=== PATIENT | female | born 1965 | race Caucasian/White ===

== ENCOUNTER 2019-09-14 06:01 | Outpatient (CLI) | payer OTHER, SELFPAY ==
[2019-09-14 18:35] LABS: SARS-CoV-2 RNA PCR Negative
== END 2019-09-14 06:02 | disposition home or self-care (01) ==
LOC: ANHCOVIDDT 06:02
PROVIDERS: PCP Internal Medicine; Visit Provider Internal Medicine Gastroenterology
DX: Z01.818 Encounter for other preprocedural examination (principal); Z11.59 Encounter for screening for other viral diseases
CPT/HCPCS: 87635; C9803; U0003

== ENCOUNTER 2019-09-16 01:56 | Day surgery (SDC) | payer OTHER, SELFPAY ==
[2019-09-10 14:12] VITALS: BMI 24.2
--- NOTE | 2019-09-16 12:16 | WPDANESEPPF ---
Anes - Initial Pre Proc Eval Procedure: Operation Date: 09/16/19 13:30 Proposed Procedures p Screening Colonoscopy - Bridger Rodriguez MD Date/Time: 09/16/19 12:16 Surgeon: Bridger Rodriguez MD Pre Op Diagnosis: screening Patient Data Age: 54 Gender: F Height: 1.68 m Weight: 68 kg Allergies Allergy/AdvReac Type Severity Reaction Status Date / Time No Known Allergies Allergy Verified 09/16/19 12:15 Home Medications Medication Instructions Recorded Confirmed Type blood sugar diagnostic #10 each 05/14/19 History benazepril 5 mg tablet 5 mg PO DAILY #90 tablet 07/13/19 09/10/19 Rx ferrous sulfate 325 mg (65 mg 325 mg PO BID #90 tablet 07/13/19 09/10/19 Rx iron) tablet methimazole 5 mg tablet 5 mg PO DAILY #90 tablet 07/13/19 09/10/19 Rx rosuvastatin 5 mg tablet 5 mg PO DAILY #90 tablet 07/13/19 09/10/19 Rx sitagliptin 50 mg-metformin 1,000 1 tablet PO BID #180 tablet 07/13/19 09/10/19 Rx mg tablet peg 3350-electrolytes 236 240 ml PO Q10M #4000 ml 09/08/19 Rx gram-22.74 gram-6.74 gram-5.86 gram solution ertugliflozin [Steglatro] 5 mg PO QAM 09/10/19 09/10/19 History Patient hx anesthesia problems: none Family hx anesthesia problems: none PMFSH Past Medical History Medical History (Updated 09/16/19 @ 12:19 by Emerson Kennedy MD) Diabetes Dyslipidemia associated with type 2 diabetes mellitus Hypertension Hypovitaminosis D Iron deficiency anemia Multinodular goiter [place] (obstructive sleep apnea) Osteoarthritis involving multiple joints on both sides of body Periodic limb movement disorder Severe episode of recurrent major depressive disorder, without psychotic features Surgical History Surgical History (Updated 09/16/19 @ 12:19 by Emerson Kennedy MD) History of Orestes-en-Y gastric bypass Family History Family History (Updated 07/14/17 @ 08:44 by DOCTOR UNKNOWN) Father Family history of cardiovascular disease Family history of congestive heart failure Mother Family history of osteoporosis Family history of mental disorder Depression Family history of chronic obstructive pulmonary disease Other Diabetes mellitus Family history of attention deficit hyperactivity disorder (ADHD) Family history of glaucoma Social History Social History Smoking status: Never smoker Alcohol intake: current Anes - Eval Final PreProcedure Day of Procedure 09/16/19 12:16 Patient weight: normal Heart: regular rate and rhythm Lungs: clear to auscultation and normal air movement Airway: Mallampati scale class II Neurological: alert and oriented Last oral intake: >/= 8 hours ASA classification: III Emergent: no Anesthetic plan: proceed Anesthesia type and monitoring: general GIVS Informed Consent: The patient's anesthetic plan and its attendant risks and benefits were discussed with the patient/family/POA. Questions were solicited and answers provided to the satisfaction of the patient/family/POA.
[2019-09-16 12:35] VITALS: BMI 24.0
[2019-09-16 12:42] VITALS: BP 147/93; PULSE 83; RESP 16; TEMP 36.9; O2SAT 99
[2019-09-16] MEDS: LACTATED RINGERS 1,000 ML 150 ML IV CONT (12:44)
[2019-09-16 12:49] LABS: Glucose Point of Care 91 (65-105)
--- NOTE | 2019-09-16 13:08 | PM.HPGS ---
History of Present Illness History of Present Illness Consent: Risks, benefits, and alternatives have been discussed and questions answered. Patient agrees to proceed with procedure. Chief complaint: screening Narrative: Pippa Velasco is a 54 year old female here for screening colonoscopy Review of Systems Constitutional: Constitutional: Denies headache(s) and Denies weakness Eyes: Eyes: Denies blurry vision ENT: Reports Normal hearing present, Denies headache(s) and Denies neck pain Cardiovascular: Cardiovascular: Denies chest pain and Denies dyspnea Respiratory: Respiratory: Denies dyspnea Gastrointestinal: Gastrointestinal: Reports no additional gastrointestinal complaints Genitourinary: Genitourinary: Denies dysuria Musculoskeletal: Musculoskeletal: Denies neck pain Integumentary/Breasts: Skin/Breast: Denies dry skin Neurologic: Reports Normal hearing present, Denies headache(s) and Denies weakness Psychiatric: Psychiatric: Denies anxiety Endocrine: Endocrine: Denies change in body appearance Hematologic/Lymphatic: Hematologic/Lymphatic: Denies easy bleeding Allergic/Immunologic: Allergic/Immunologic: Denies urticaria PMFSH Past Medical History Medical History (Updated 09/16/19 @ 13:09 by Bridger Rodriguez MD) Colon cancer screening Diabetes Dyslipidemia associated with type 2 diabetes mellitus Hypertension Hypovitaminosis D Iron deficiency anemia Multinodular goiter [place] (obstructive sleep apnea) Osteoarthritis involving multiple joints on both sides of body Periodic limb movement disorder Severe episode of recurrent major depressive disorder, without psychotic features Surgical History Surgical History (Updated 09/16/19 @ 12:19 by Emerson Kennedy MD) History of Orestes-en-Y gastric bypass Family History Family History (Updated 07/14/17 @ 08:44 by DOCTOR UNKNOWN) Father Family history of cardiovascular disease Family history of congestive heart failure Mother Family history of osteoporosis Family history of mental disorder Depression Family history of chronic obstructive pulmonary disease Other Diabetes mellitus Family history of attention deficit hyperactivity disorder (ADHD) Family history of glaucoma Social History Social History Smoking status: Never smoker Alcohol intake: current Meds Home Medications and Allergies Home Medications Medication Instructions Recorded Confirmed Type blood sugar diagnostic #10 each 05/14/19 History benazepril 5 mg tablet 5 mg PO DAILY #90 tablet 07/13/19 09/16/19 Rx ferrous sulfate 325 mg (65 mg 325 mg PO BID #90 tablet 07/13/19 09/16/19 Rx iron) tablet methimazole 5 mg tablet 5 mg PO DAILY #90 tablet 07/13/19 09/16/19 Rx rosuvastatin 5 mg tablet 5 mg PO DAILY #90 tablet 07/13/19 09/16/19 Rx sitagliptin 50 mg-metformin 1,000 1 tablet PO BID #180 tablet 07/13/19 09/16/19 Rx mg tablet ertugliflozin [Steglatro] 5 mg PO QAM 09/10/19 09/16/19 History Allergies Allergy/AdvReac Type Severity Reaction Status Date / Time No Known Allergies Allergy Verified 09/16/19 12:15 Vital Signs Vital Signs - 24 hr 09/16/19 12:42 Temperature 98.5 F Pulse Rate 83 Respiratory Rate 16 Blood Pressure 147/93 H Pulse Oximetry 99 Exam Const: General: comfortable and no acute distress HENMT: General nose exam: Normal nares present Eyes: General: appearance normal, both eyes and all related structures Neck: Neck: no JVD Resp: Auscultation: clear to auscultation bilaterally Cardio: Rate: regular rate Rhythm: regular rhythm GI: Inspection: non-distended GI Palp: Yes Soft to palpation Skin: General skin exam: normal color Neuro: General: gait normal Speech: normal speech Extrem: General: normal to inspection Psych: Mental Status: mental status grossly normal Assessment and Plan Assessment and plan (1) Colon cancer screening: Code(s): Z12.11 - Encounter for screening for m
[2019-09-16 13:31] VITALS: BP 122/78; PULSE 72; RESP 18; O2SAT 100
[2019-09-16 13:40] VITALS: BP 118/76; PULSE 66; RESP 18; O2SAT 100
[2019-09-16 13:50] VITALS: BP 142/78; PULSE 65; RESP 19; O2SAT 100
== END 2019-09-16 14:18 | disposition home or self-care (01) ==
PROVIDERS: PCP Internal Medicine; Visit Provider Internal Medicine Gastroenterology
PROC: 0DJD8ZZ Inspection of Lower Intestinal Tract, Via Natural or Artificial Opening Endoscopic (ICD-10-PCS; CPT 45378; principal; 2019-09-16 13:30)
DX: Z12.11 Encounter for screening for malignant neoplasm of colon (principal); K64.8 Other hemorrhoids; E11.9 Type 2 diabetes mellitus without complications; I10 Essential (primary) hypertension; E55.9 Vitamin D deficiency, unspecified; D50.9 Iron deficiency anemia, unspecified; E04.2 Nontoxic multinodular goiter; G47.33 Obstructive sleep apnea (adult) (pediatric); M19.90 Unspecified osteoarthritis, unspecified site; F33.2 Major depressive disorder, recurrent severe without psychotic features; Z98.84 Bariatric surgery status; Z79.84 Long term (current) use of oral hypoglycemic drugs
CPT/HCPCS: 45378; J2704; J7120

== ENCOUNTER 2019-10-14 11:12 | Outpatient (CLI) | payer OTHER, SELFPAY ==
--- NOTE | ~2019-10-14 | US_ITS ---
EXAMINATION: US thyroid DATE: 10/14/2019 12:03 INDICATION: Thyroid nodule. TECHNIQUE: Multiple ultrasound images of the thyroid were obtained. COMPARISON: Ultrasound 08/04/2017 FINDINGS: The right thyroid lobe measures 5.8 x 1.8 x 1.7 cm. The left thyroid lobe measures 4.7 x 0.9 x 1.7 c m. In the right thyroid lobe, there is a 1.5 cm solid, hypoechoic, deijf-mvee-kpsc nodule with kaycee h margin and macrocalcification (TI-RADS TR4) there are demonstrated benign pathology fine-needle asp iration on 08/18/2017, decreased in size from 08/04/17. In the right thyroid lobe, there is a 14 mm anuja d, hypoechoic, nqyvo-uvjz-nrnk nodule with lobulated margin without echogenic foci (TR4), stable from 08/04/17. In the left thyroid lobe, there is a 10 mm solid, hypoechoic, nowsw-uyww-buwi nodule with sm ooth margin without echogenic foci (TR4), stable from 08/04/17. There are multiple nodules in the thyro id measuring less than 10 mm. IMPRESSION: 1. Stable pulmonary nodules. Follow-up ultrasound is recommended in 1 year. Reviewed, dictated and finalized at location A.
== END 2019-10-14 11:13 | disposition home or self-care (01) ==
LOC: ANHIMG 11:14
PROVIDERS: PCP Internal Medicine; Visit Provider Internal Medicine Endocrinology, Diabetes & Metabolism
DX: E04.1 Nontoxic single thyroid nodule (principal); R91.8 Other nonspecific abnormal finding of lung field
CPT/HCPCS: 76536

== ENCOUNTER 2019-11-24 09:37 | Outpatient (CLI) | payer OTHER, SELFPAY ==
[2019-11-24 10:38] LABS: Basophils Absolute Auto 0.1 K/mm3 (0.0-0.1); Basophils Percent Auto 0.7 % (0.2-1.2); Eosinophils Absolute Auto 0.1 K/mm3 (0-0.3); Eosinophils Percent Auto 1.6 % (0-4.4); Hematocrit 41.1 % (37.0-47.0); Hemoglobin 13.8 g/dL (12.0-15.0); Immature Granulocyte Absolute 0.02 K/mm3 (0.00-0.031); Immature Granulocyte Percent A 0.3 % (0-0.5); Lymphocytes Absolute Auto 2.45 K/mm3 (0.9-3.2); Lymphocytes Percent Auto 34.9 % (18.3-44.2); Mean Corpuscular HGB Conc 33.6 g/dl (32-36); Mean Corpuscular Hemoglobin 28.9 pg (26-34); Mean Platelet Volume 9.9 fl (7.4-10.4); Monocytes Absolute Auto 0.4 K/mm3 (0.1-0.6); Neutrophils Percent Auto 56.5 % (45.5-73.1); Platelet Count Result 208 k/mm3 (150-375); Red Blood Count 4.78 M/mm3 (4.2-5.4); Red Cell Distribution Width 12.9 % (11.5-14.5)
[2019-11-24 10:50] LABS: Alanine Aminotransferase 27 U/L (4-35); Albumin Level 4.2 g/dL (3.5-5.1); Alkaline Phosphatase 48 U/L (38-126); Anion Gap 10.1 mmol/L (7-16); Aspartate Amino Transferase 30 U/L (14-36); Bilirubin,Total 0.5 mg/dL (0.2-1.3); Blood Urea Nitrogen 16 mg/dL (7-17); Calcium 9.3 mg/dL (8.4-10.2); Carbon Dioxide 30 mmol/L (22-30); Chloride 102 mmol/L (98-107); Cholesterol 122 mg/dL (0-200); Estimated Glomerular Filt Rate > 60; Glucose 129 mg/dL (65-105); HDL Direct 56 mg/dL; Potassium 4.1 mmol/L (3.4-5.0); Sodium 138 mmol/L (137-145); Triglycerides 60 mg/dL (<150)
[2019-11-24 10:52] LABS: Hemoglobin A1C 5.7 % (<5.7)
[2019-11-24 11:01] LABS: LDL Cholesterol Direct 53 mg/dL
[2019-11-24 11:21] LABS: Thyroid Stimulating Hormone 0.296 uIU/mL (0.465-4.680)
[2019-11-24 11:45] LABS: Iron 63 ug/dL (37-170)
[2019-11-24 11:49] LABS: Creatinine Urine 122.9 mg/dL
[2019-11-24 11:56] LABS: Percent Iron Saturation 18 % (20-50)
[2019-11-24 12:02] LABS: Free T4 Free Thyroxine 1.32 ng/mL (0.78-2.19)
[2019-11-24 12:08] LABS: MALB Creatinine Ratio < 4.9 mg/g (0-30); Microalbumin Urine Random < 6.0 mg/L (0-16.7)
[2019-11-30 21:08] LABS: Triiodothyronine T3 Free 2.9 pg/mL (2.3-4.2)
== END 2019-11-24 09:38 | disposition home or self-care (01) ==
PROVIDERS: PCP Internal Medicine; Referring Provider Internal Medicine Endocrinology, Diabetes & Metabolism; Visit Provider Internal Medicine
DX: D50.9 Iron deficiency anemia, unspecified (principal); E05.90 Thyrotoxicosis, unspecified without thyrotoxic crisis or storm; E11.69 Type 2 diabetes mellitus with other specified complication; E78.5 Hyperlipidemia, unspecified
CPT/HCPCS: 36415; 80053; 80061; 82043; 82728; 83036; 83540; 83550; 84439; 84443; 84481; 85025

== ENCOUNTER 2019-12-28 01:41 | Outpatient (CLI) | payer OTHER, SELFPAY ==
[2019-12-28 18:23] LABS: SARS-CoV-2 RNA PCR Negative
== END 2019-12-28 01:42 | disposition home or self-care (01) ==
LOC: ANHCOVIDDT 01:42
PROVIDERS: PCP Internal Medicine; Visit Provider Surgery Plastic and Reconstructive Surgery
DX: Z01.812 Encounter for preprocedural laboratory examination (principal); Z20.828 Contact with and (suspected) exposure to other viral communicable diseases
CPT/HCPCS: 87635; C9803; U0003

== ENCOUNTER 2019-12-28 08:22 | Outpatient (CLI) | payer OTHER, SELFPAY ==
--- NOTE | 2019-12-28 08:23 | ECG_ITS ---
Measurements Intervals [place] Rate: 71 P: 55 HI: 172 QRS: 13 QRSD: 93 T: 48 QT: 386 QTc: 422 Interpretive Statements SINUS RHYTHM LOW QRS VOLTAGE IN PRECORDIAL LEADS CANNOT RULE OUT SEPTAL INFARCT, AGE INDETERMINATE ABNORMAL ECG Electronically Signed On 12-28-2019 13:23:49 CDT by Ochoa Padron D.O.
[2019-12-28 08:55] LABS: Anion Gap 6 mmol/L (8-16); Blood Urea Nitrogen 15 mg/dL (7-17); Calcium 8.8 mg/dL (8.4-10.2); Carbon Dioxide 28 mmol/L (22-30); Chloride 104 mmol/L (98-107); Estimated Glomerular Filt Rate > 60; Glucose 193 mg/dL (65-105); Sodium 138 mmol/L (137-145)
== END 2019-12-28 08:23 | disposition home or self-care (01) ==
LOC: ANHSURGERY 08:23
PROVIDERS: Anesthesiology; PCP Internal Medicine; Visit Provider Surgery Plastic and Reconstructive Surgery
DX: Z01.812 Encounter for preprocedural laboratory examination (principal); I10 Essential (primary) hypertension; E11.9 Type 2 diabetes mellitus without complications
CPT/HCPCS: 36415; 80048; 93005

== ENCOUNTER 2019-12-30 00:33 | Day surgery (SDC) | payer OTHER, SELFPAY ==
[2019-12-14 14:06] VITALS: BMI 23.1
--- NOTE | 2019-12-29 11:24 | P.PNAN_ITS ---
Anes - Initial Pre Proc Eval Procedure: Operation Date: 12/30/19 09:00 Proposed Procedures p Excision Subcutaneous Mass Right Mid Back - Sincere Ray MD Date/Time: 12/29/19 11:24 Surgeon: Sincere Ray MD Pre Op Diagnosis: [id number] mass right mid back Patient Data Age: 54 Gender: F Height: 1.68 m Weight: 64.86 kg Allergies Allergy/AdvReac Type Severity Reaction Status Date / Time NSAIDS (Non-Steroidal AdvReac Abdominal Verified 12/30/19 07:24 Anti-Inflamma Pain Home Medications Medication Instructions Recorded Confirmed Type benazepril 5 mg tablet 5 mg PO DAILY #90 tablet 07/13/19 12/14/19 Rx rosuvastatin 5 mg tablet 5 mg PO DAILY #90 tablet 07/13/19 12/14/19 Rx ertugliflozin [Steglatro] 5 mg PO QAM 09/10/19 12/14/19 History sitagliptin-metformin [Janumet] 1 tablet PO BID 12/14/19 12/14/19 History docusate sodium 100 mg capsule 100 mg PO BID #14 cap 12/22/19 Rx ondansetron HCl 4 mg tablet 4 mg PO Q6H PRN #30 tablet 12/22/19 Rx tramadol 50 mg tablet 50 mg PO Q6H PRN #15 tablet 12/22/19 12/22/19 Rx Patient hx anesthesia problems: none Family hx anesthesia problems: none PMFSH Social History Social History Smoking status: Never smoker Alcohol intake: never Substance use: never Substance use type: does not use Anes - Eval Final PreProcedure Day of Procedure 12/29/19 11:24 Patient weight: normal Heart: regular rate and rhythm Lungs: clear to auscultation and normal air movement Airway: Mallampati scale class II Neurological: alert and oriented Last oral intake: >/= 8 hours ASA classification: III Emergent: no Anesthetic plan: proceed Anesthesia type and monitoring: general ETT and standard monitoring Informed Consent: The patient's anesthetic plan and its attendant risks and benefits were discussed with the patient/family/POA. Questions were solicited and answers provided to the satisfaction of the patient/family/POA.
[2019-12-30] VITALS (7 sets, daily range): BP systolic 97–139; BP diastolic 57–76; PULSE 66–87; RESP 10–27; TEMP 36.2; O2SAT 100
[2019-12-30] MEDS: LACTATED RINGERS 1,000 ML 30 ML IV CONT ×2 (07:20→09:34)
[2019-12-30 07:33] LABS: Glucose Point of Care 106 (65-105)
--- NOTE | 2019-12-30 08:04 | WPDHPUPDATE1 ---
History and Physical Update Update Date/Time: 12/30/19 08:04 History and Physical has been reviewed, including an updated exam of the patient. There are NO changes in the patient's condition. Risks, benefits, and alternatives have been discussed and questions answered. Patient agrees to proceed with procedure.
--- NOTE | 2019-12-30 08:23 | P.OP_ITS ---
Procedure Note - Detailed Date of procedure: 12/30/19 Pre-op diagnosis: [id number] mass right mid back Post-op diagnosis: same Procedure performed: Excision right midback subcutaneous mass 15cm. Description of procedure: Patient was marked in the preoperative holding area with her verification. Risks, benefits, alternatives were discussed in extensive detail. Answered all of her questions to her satisfaction and consent obtained.She was taken to the operating room placed supine on the operating room table. Anesthesia provided by anesthesiology and prepped and draped in a standard sterile fashion. 1% lidocaine and 0.25% Marcaine with epinephrine was used anesthetize locally. Fifteen blade used to make an incision over the mass. The wall was identified this does appear to be a lipoma. It was completely excised and sent to p athology. I copiously irrigated with saline solution and verified strict hemostasis. I closed in many layers to obliterate all space using a 2-0 Vicryl followed by 3-0 Monocryl in a running subcuticular 4-0 Monocryl and tissue glue. Dressing was placed. She was taken to the PACU without difficulty. All instrument sponge counts were correct at the end of the case. Anesthesia: GETA Surgeon: Sincere Ray MD Estimated blood loss (mL): 5 Drains: No Packing: No Pathology: yes Complications: No immediate complications Condition: stable Disposition: PACU
[2019-12-30] MEDS: ceFAZolin 2 GM/D5W 50 ML 2 GM/50 ML BAG IVPB (08:38)
[2019-12-30] MEDS: LIDO 1%/EPINEPHRINE 1:100,000 20 ML VIAL INFILTRATE (08:59)
[2019-12-30 09:49] LABS: Glucose Point of Care 104 (65-105)
[2019-12-30] MEDS: ONDANSETRON INJ 4 MG/2 ML VIAL IV PUSH (10:02)
== END 2019-12-30 11:22 | disposition home or self-care (01) ==
PROVIDERS: PCP Internal Medicine; Visit Provider Surgery Plastic and Reconstructive Surgery
PROC: (CPT 21931; principal; 2019-12-30 09:00)
DX: D17.1 Benign lipomatous neoplasm of skin and subcutaneous tissue of trunk (principal); I10 Essential (primary) hypertension; E11.9 Type 2 diabetes mellitus without complications; G47.33 Obstructive sleep apnea (adult) (pediatric); D50.9 Iron deficiency anemia, unspecified; E55.9 Vitamin D deficiency, unspecified; G25.81 Restless legs syndrome; E05.90 Thyrotoxicosis, unspecified without thyrotoxic crisis or storm; F32.9 Major depressive disorder, single episode, unspecified; Z86.718 Personal history of other venous thrombosis and embolism; Z98.84 Bariatric surgery status
CPT/HCPCS: 21931; 88304; J0690; J1100; J2250; J2405; J2704; J3010; J7120

== ENCOUNTER 2020-02-11 08:38 | Outpatient (CLI) | payer OTHER, SELFPAY ==
[2020-02-11 09:18] LABS: Basophils Absolute Auto 0.1 K/mm3 (0.0-0.1); Basophils Percent Auto 0.7 % (0.2-1.2); Eosinophils Absolute Auto 0.1 K/mm3 (0-0.3); Eosinophils Percent Auto 1.1 % (0-4.4); Hematocrit 41.1 % (37.0-47.0); Hemoglobin 13.9 g/dL (12.0-15.0); Immature Granulocyte Absolute 0.02 K/mm3 (0.00-0.031); Immature Granulocyte Percent A 0.3 % (0-0.5); Lymphocytes Absolute Auto 1.93 K/mm3 (0.9-3.2); Mean Corpuscular HGB Conc 33.8 g/dl (32-36); Mean Corpuscular Hemoglobin 29.6 pg (26-34); Mean Corpuscular Volume 87.4 fl (80-100); Mean Platelet Volume 10.2 fl (7.4-10.4); Monocytes Absolute Auto 0.4 K/mm3 (0.1-0.6); Neutrophils Absolute Auto 4.7 K/mm3 (1.3-6.7); Neutrophils Percent Auto 64.9 % (45.5-73.1); Platelet Count Result 212 k/mm3 (150-375); Red Cell Distribution Width 11.9 % (11.5-14.5); White Blood Count 7.2 K/mm3 (4.5-10.0)
[2020-02-11 09:58] LABS: Thyroid Stimulating Hormone 0.506 uIU/mL (0.465-4.680)
[2020-02-11 10:09] LABS: Hemoglobin A1C 5.7 % (<5.7)
[2020-02-11 10:19] LABS: Iron 83 ug/dL (37-170)
[2020-02-11 10:28] LABS: Percent Iron Saturation 22 % (20-50)
[2020-02-11 10:35] LABS: Free T4 Free Thyroxine 1.22 ng/mL (0.78-2.19)
[2020-02-11 10:44] LABS: MALB Creatinine Ratio < 5.8 mg/g (0-30); Microalbumin Urine Random < 6.0 mg/L (0-16.7)
== END 2020-02-11 08:39 | disposition home or self-care (01) ==
PROVIDERS: PCP Internal Medicine; Referring Provider Internal Medicine Endocrinology, Diabetes & Metabolism; Visit Provider Internal Medicine
DX: E04.9 Nontoxic goiter, unspecified (principal); E05.90 Thyrotoxicosis, unspecified without thyrotoxic crisis or storm; E11.9 Type 2 diabetes mellitus without complications; D50.9 Iron deficiency anemia, unspecified
CPT/HCPCS: 36415; 82043; 82728; 83036; 83540; 83550; 84439; 84443; 84481; 85025

== ENCOUNTER → 2020-09-02 09:25 | Outpatient (CLI) | payer OTHER, SELFPAY ==
--- NOTE | ~2020-09-02 | DEXA_ITS ---
Bone Density Report Name: Pippa Velasco Age: 55 Sex: Female Ethnicity: White Date of : 1965 Indication: postmenopausal; screening for osteoporosis; Referring Provider: Desmond, Lela Dumont Study: Bone densitometry was performed. Exam Date: September 02, 2020 Accession number: [id number] Bone Density: Region BMD T-score Z-score Classification AP Spine (L1-L4) 0.788 -2.4 -1.2 Osteopenia Femoral Neck (Left) 0.620 -2.1 -0.9 Osteopenia Total Hip (Left) 0.787 -1.3 -0.5 Osteopenia Femoral Neck (Right) 0.540 -2.8 -1.7 Osteoporosis Total Hip (Right) 0.723 -1.8 -1.0 Osteopenia Total Hip Mean 0.755 -1.6 -0.8 Osteopenia World Health Organization criteria for BMD impression classify patients as: Normal (T-score at or above -1.0), Osteopenia (T-score between -1.0 and -2.5), or Osteoporosis (T-score at or below -2.5). 10-year Fracture Risk: FRAX not reported because: Some T-score for Spine Total or Hip Total or Femoral Neck at or below -2.5 Clinical Information Provided by Patient: Patient maximum height was 66.0 Menopause Age: 50 No regular weight bearing exercise Does not regularly consume dairy products Drinks caffeinated beverages Onset of menses at age 10 Number of children 2 Impression: The patient has osteoporosis, based on the Right Femoral Neck T-score. Discussion: INCREASED RISK OF FRACTURE. BONE DENSITY IS UNDESIRABLY LOW AT ONE OR MORE SKELETAL SITES, CONSISTENT WITH POSTMENOPAUSAL OSTEOPOROSIS. This patient's lowest T-score meets the World Health Organization's (WHO) criteria for osteoporosis at one or more sites (T-score -2.5 or below). In untreated patients, the risk of osteoporotic fracture increases approximately two-fold for each 1.0 SD decrease in T-score. Low bone density is not the only risk factor for fracture; also consider factors such as patient's age, frailty or poor health, risk of falling, risk of injury, previous osteoporotic fracture, family history of osteoporosis, cigarette smoking, low body weight, etc. Not everyone with low bone mineral density has osteoporosis; osteomalacia and other metabolic bone disorders should also be considered. Patients who have osteoporosis should be evaluated for specific diseases and conditions (secondary causes) that may cause or contribute to bone loss. The [place] [employer]ocrinologists (AACE) and National Osteoporosis Foundation (NOF) recommend pharmacologic intervention for all postmenopausal women whose T-score is in this range. The patient should follow a healthful lifestyle (good nutrition with adequate calcium and vitamin D, and appropriate weight-bearing exercise). Follow-Up: Consider a repeat BMD and Vertebral Fracture Assessment (VFA) exam in 2 years or sooner if medically necessary, to reassess this patient's status. Kailyn
--- NOTE | ~2020-09-02 | MM_ITS ---
EXAMINATION: MM screening paulette BI w cleo HISTORY: Screening TECHNIQUE: Craniocaudal and mediolateral oblique 3-D tomosynthesis images were obtained and synthetic 2-D images were generated. CAD analysis was submitted and interpreted. COMPARISON: 08/13/2027 BREAST PARENCHYMAL COMPOSITION: There are scattered areas of fibroglandular density. FINDINGS: There is no evidence of suspicious mass, calcification, or architectural distortion to sugg est malignancy in either breast. There has been no suspicious interval change. IMPRESSION: 1. No mammographic evidence of malignancy. 2. Recommend routine screening mammography in one year. BI-RADS Category 1: Negative Reviewed, dictated and finalized at location A.
== END ==
PROVIDERS: PCP Internal Medicine; Visit Provider Nurse Practitioner Obstetrics & Gynecology
DX: Z12.31 Encounter for screening mammogram for malignant neoplasm of breast (principal); M85.88 Other specified disorders of bone density and structure, other site; M85.852 Other specified disorders of bone density and structure, left thigh; M85.851 Other specified disorders of bone density and structure, right thigh; M81.0 Age-related osteoporosis without current pathological fracture
CPT/HCPCS: 77063; 77067; 77080

== ENCOUNTER 2020-10-18 10:55 | Outpatient (CLI) | payer OTHER, SELFPAY ==
--- NOTE | ~2020-10-18 | US_ITS ---
EXAMINATION: US thyroid EXAM DATE: 10/18/2020 11:22 INDICATION: E04.1 - Nontoxic single thyroid nodule . TECHNIQUE: Multiple grayscale and Doppler images of the thyroid were obtained (by a technologist who performed the scan) and subsequently reviewed. Individual nodules and recommendations may be reporte d in accordance with TI-RADS system as designated by the 2017 ACR White Paper TI-RADS committee. Comp arison is made to prior examination from 10/14/2019. FINDINGS: Right thyroid lobe measures 6.2 x 2.4 x 1.5 cm, the left measuring 5.7 x 2.1 x 1.5 cm. There are mult iple scattered thyroid nodules. Right thyroid lobe nodule measuring 1.4 x 1.0 x 1.4 cm (previously 1.4 x 0.9 x 1.3 cm ), predominantl y solid (2 points), hypoechoic (2 points), wider than tall, smooth well defined margin, without echog enic foci, category TR4 for this nodule. Another right thyroid lobe nodule measuring 1.6 x 0.7 x 1.7 centimeters (previously 1.5 x 0.9 x 1.1), solid (2 points), hypoechoic (2 points), wider than tall, smooth well defined margin, containing mac rocalcification(s) causing acoustic shadowing (1 point), category TR4 for this nodule. Multiple similar-appearing additional bilateral thyroid nodules. A left thyroid lobe nodule measuring 1.5 x 0.6 x 1.4 cm (measured 1.2 x 0.7 x 1.2 in 2018), solid (2 points), hypoechoic (2 points), wider than tall, smooth well defined margin, containing macrocalcific ation(s) causing acoustic shadowing (1 point), category TR4 for this nodule. IMPRESSION: Multinodular goiter, without definite change in nodules accounting for differences in cesar hnique. Consider one-year follow-up ultrasound. Reviewed, dictated and finalized at location B. IMPRESSION: Multinodular goiter, without definite change in nodules accounting for differences in technique. Consider one-year follow-up ultrasound.
== END 2020-10-18 10:56 | disposition home or self-care (01) ==
PROVIDERS: PCP Internal Medicine; Visit Provider Internal Medicine Endocrinology, Diabetes & Metabolism
DX: E04.2 Nontoxic multinodular goiter (principal)
CPT/HCPCS: 76536